=== PATIENT | female | born 1960 | race Caucasian/White ===

== ENCOUNTER 2020-11-13 22:21 | Observation (INO) ==
[2020-11-13] MEDS ORDERED: ALBUTEROL/IPRATROPIUM 3 ML NEB RESP TX STA (22:44)
[2020-11-13] MEDS ORDERED: methylPREDNISolone SOD SUC 125 MG/2 ML VIAL IV STA (22:44)
[2020-11-13] MEDS ORDERED: ASPIRIN 325 MG TABLET PO STA (22:44)
[2020-11-13] MEDS ORDERED: ALBUTEROL 2.5 MG/3 ML NEB RESP TX STA (22:44)
[2020-11-13 22:56] LABS: Basophils % 0.4 % (0.0-0.8); Eosinophils % 0.1 % (0.00-10.9); Hematocrit 44.8 VOL% (35.7-47.0); Hemoglobin 14.3 GM/DL (12.0-16.0); Immature Granulocytes % 0.6 %; Immature Granulocytes Absolute 0.06 #; Lymphocytes # 1.5 10*3/uL (1.4-4.0); Lymphocytes % 14.1 % (21.3-54.2); Mean Corpuscular HGB Conc 31.9 GM/DL (32-36); Mean Corpuscular Volume 89.1 FL (87-102); Mean Platelet Volume 10.5 FL (9.6-12.0); Monocytes % 4.3 % (1.7-12.7); Neutrophils % 80.5 % (38.7-73.9); Platelet Count 232 T/CUMM (130-400); Red Blood Count 5.03 MC/CUMM (3.8-5.5); Red Cell Distribution Width 14.1 % (9.3-17.3); White Blood Count 10.3 T/CUMM (4-12)
[2020-11-13 23:06] LABS: PT Patient Result 10.3 SECS (9.8-11.9)
[2020-11-13 23:15] LABS: Alanine Aminotransferase 32 U/L (13-56); Albumin 3.4 G/DL (3.4-5.0); Alkaline Phosphatase 72 U/L (45-117); Aspartate Amino Transferase 22 U/L (0-37); Bilirubin,Total < 0.39 MG/DL (0.2-1.0); Blood Urea Nitrogen 17 MG/DL (7-18); Calcium 8.9 MG/DL (8.5-10.1); Carbon Dioxide 26 MMOL/L (21-32); Estimated Glom Filtration Rate 109 ML/MIN; Glucose 115 MG/DL (74-106); Osmolality,Calculated 279.5 MOS/KG (273-304); Potassium 4.2 MMOL/L (3.5-5.1); Sodium 139 MMOL/L (136-145); Total Protein 7.8 G/DL (6.4-8.3)
[2020-11-13] MEDS ORDERED: LEVALBUTEROL 0.63 MG/3 ML NEB RESP TX ONE ×2 (23:25)
[2020-11-13 23:27] LABS: ABG Base Excess 1.5 MMOL/L (-2.5-2.5); ABG HCO3 25.6 MMOL/L (20-26); ABG Oxygen Saturation 93.6 % (95-100); ABG PCO2 38.6 MM HG (35-48); ABG PO2 60.6 MM HG (80-95); ABG TCO2 21.9 MMOL/L (23-27)
[2020-11-13] MEDS ORDERED: LEVALBUTEROL 0.63 MG/3 ML NEB RESP TX STA ×2 (23:43)
[2020-11-13] MEDS ORDERED: AZITHROMYCIN INJ 500 MG in SODIUM CHLORIDE 0.9% 250 ML IV STA (23:51)
[2020-11-13] MEDS ORDERED: cefTRIAXone 1,000 MG in SODIUM CHLORIDE 0.9% 100 ML IV STA (23:51)
[2020-11-14] MEDS ORDERED: DEXTROSE 50% 25 GM/50 ML VIAL IV PRN (00:08)
[2020-11-14] MEDS ORDERED: SIMETHICONE CHEW 125 MG TABLET PO PRN (00:08)
[2020-11-14] MEDS ORDERED: GLUCAGON 1 MG VIAL IM PRN (00:08)
[2020-11-14] MEDS ORDERED: guaiFENesin/DM ER 600-30 MG TABLET PO PRN (00:08)
[2020-11-14] MEDS ORDERED: ALUMINUM/MAGNES/SIMETH MAX STR 30 ML UDCUP PO PRN (00:08)
[2020-11-14] MEDS ORDERED: NICOTINE 21 MG/24 HR PATCH TRANSDERM PRN (00:08)
[2020-11-14] MEDS ORDERED: hydrALAZINE 20 MG/1 ML VIAL IV PRN (00:08)
[2020-11-14] MEDS ORDERED: ONDANSETRON 4 MG/2 ML VIAL IV PRN (00:08)
[2020-11-14] MEDS ORDERED: diphenhydrAMINE CAP 25 MG CAPSULE PO PRN (00:08)
[2020-11-14] MEDS ORDERED: ALBUTEROL/IPRATROPIUM 3 ML NEB RESP TX SCH (01:00)
[2020-11-14] MEDS: ACETAMINOPHEN 325 MG TABLET PO PRN ×2 (01:01→08:40)
[2020-11-14] MEDS: methylPREDNISolone SOD SUC 40 MG/1 ML VIAL IV SCH ×3 (06:34→21:45)
[2020-11-14] MEDS ORDERED: ALBUTEROL 1.25 MG/3 ML NEB RESP TX SCH (07:00)
[2020-11-14 07:29] LABS: Basophils % 0.1 % (0.0-0.8); Hematocrit 43.7 VOL% (35.7-47.0); Hemoglobin 13.6 GM/DL (12.0-16.0); Immature Granulocytes % 0.7 %; Lymphocytes # 1.2 10*3/uL (1.4-4.0); Lymphocytes % 8.7 % (21.3-54.2); Mean Corpuscular HGB Conc 31.1 GM/DL (32-36); Mean Corpuscular Volume 91.2 FL (87-102); Mean Platelet Volume 10.7 FL (9.6-12.0); Monocytes % 0.7 % (1.7-12.7); Neutrophils % 89.8 % (38.7-73.9); Platelet Count 210 T/CUMM (130-400); Red Blood Count 4.79 MC/CUMM (3.8-5.5); Red Cell Distribution Width 14.1 % (9.3-17.3); White Blood Count 13.6 T/CUMM (4-12)
[2020-11-14 07:51] LABS: Albumin 3.1 G/DL (3.4-5.0); Bilirubin,Total 0.5 MG/DL (0.2-1.0); Calcium 8.9 MG/DL (8.5-10.1); Osmolality,Calculated 278.8 MOS/KG (273-304); Potassium 3.8 MMOL/L (3.5-5.1); Total Protein 7.5 G/DL (6.4-8.3)
[2020-11-14] MEDS: LEVALBUTEROL 0.63 MG/3 ML NEB RESP TX SCH ×3 (07:51→19:26)
[2020-11-14] MEDS: IPRATROPIUM 500 MCG/2.5 ML NEB RESP TX SCH ×3 (07:51→19:26)
[2020-11-14] MEDS: PANTOPRAZOLE 40 MG TABLET PO SCH (08:40)
[2020-11-14] MEDS: ENOXAPARIN 40 MG/0.4 ML SYRINGE SUBCUT SCH (08:40)
[2020-11-14] MEDS: guaiFENesin 200 MG/10 ML UDCUP PO PRN (13:06)
[2020-11-14] MEDS: BENZOCAINE/MENTHOL LOZENGE 18/BOX PO PRN ×2 (15:24→21:46)
[2020-11-14] MEDS ORDERED: AZITHROMYCIN INJ 500 MG in SODIUM CHLORIDE 0.9% 250 ML IV SCH (21:00)
[2020-11-14] MEDS: ZALEPLON 5 MG CAPSULE PO PRN (21:36)
[2020-11-14] MEDS: cefTRIAXone 1,000 MG in SYRINGE 1 EACH IV SCH (21:37)
[2020-11-15] MEDS: IPRATROPIUM 500 MCG/2.5 ML NEB RESP TX SCH ×4 (01:12→20:00)
[2020-11-15] MEDS: LEVALBUTEROL 0.63 MG/3 ML NEB RESP TX SCH ×4 (01:12→20:00)
[2020-11-15] MEDS: methylPREDNISolone SOD SUC 40 MG/1 ML VIAL IV SCH ×4 (06:23→21:00)
[2020-11-15] MEDS: BENZOCAINE/MENTHOL LOZENGE 18/BOX PO PRN ×2 (09:38→17:49)
[2020-11-15] MEDS: PANTOPRAZOLE 40 MG TABLET PO SCH (09:38)
[2020-11-15] MEDS: ENOXAPARIN 40 MG/0.4 ML SYRINGE SUBCUT SCH (09:38)
[2020-11-15] MEDS: AZITHROMYCIN 250 MG TABLET PO SCH (12:17)
[2020-11-15] MEDS: guaiFENesin 200 MG/10 ML UDCUP PO PRN (17:49)
[2020-11-15] MEDS: BUDESONIDE 0.5 MG/2 ML NEB RESP TX SCH (20:00)
[2020-11-15] MEDS: ZALEPLON 5 MG CAPSULE PO PRN (20:28)
[2020-11-15] MEDS: cefTRIAXone 1,000 MG in SYRINGE 1 EACH IV SCH (20:28)
[2020-11-16] MEDS: IPRATROPIUM 500 MCG/2.5 ML NEB RESP TX SCH ×3 (00:23→13:56)
[2020-11-16] MEDS: LEVALBUTEROL 0.63 MG/3 ML NEB RESP TX SCH ×3 (00:23→13:57)
[2020-11-16] MEDS: methylPREDNISolone SOD SUC 40 MG/1 ML VIAL IV SCH ×2 (01:00→08:47)
[2020-11-16] MEDS: BUDESONIDE 0.5 MG/2 ML NEB RESP TX SCH (07:10)
[2020-11-16] MEDS: PANTOPRAZOLE 40 MG TABLET PO SCH (08:46)
[2020-11-16] MEDS: guaiFENesin 200 MG/10 ML UDCUP PO PRN (08:46)
[2020-11-16] MEDS: AZITHROMYCIN 250 MG TABLET PO SCH (08:46)
[2020-11-16] MEDS: ENOXAPARIN 40 MG/0.4 ML SYRINGE SUBCUT SCH (08:47)
[2020-11-16 11:58] VITALS: BP 176/85
[2020-11-17] MEDS ORDERED: LEVOFLOXACIN 500 MG TABLET PO SCH (09:00)
== END 2020-11-16 14:59 | disposition home or self-care (01) ==
LOC: N.ED 22:21 → N.5E 22:21
PROVIDERS: ADMIT Internal Medicine; ATTEND Internal Medicine

== ENCOUNTER 2021-01-11 18:34 | Observation (INO) ==
[2021-01-11] MEDS ORDERED: SODIUM CHLORIDE 0.9% 500 ML IV STA (19:53)
[2021-01-11] MEDS ORDERED: PANTOPRAZOLE 40 MG VIAL IV STA (19:53)
[2021-01-11] MEDS ORDERED: HYDROmorphone 2 MG/1 ML VIAL IV STA (19:53)
[2021-01-11] MEDS ORDERED: ONDANSETRON 4 MG/2 ML VIAL IV STA (19:53)
[2021-01-11 22:26] LABS: Basophils # 0.1 10*3/uL (0.0-0.2); Basophils % 0.6 % (0.0-0.8); Eosinophils # 0.4 10*3/uL (0.0-0.87); Eosinophils % 3.6 % (0.00-10.9); Hematocrit 48.5 VOL% (35.7-47.0); Hemoglobin 15.3 GM/DL (12.0-16.0); Immature Granulocytes % 0.3 %; Immature Granulocytes Absolute 0.03 #; Lymphocytes # 3.8 10*3/uL (1.4-4.0); Lymphocytes % 31.7 % (21.3-54.2); Mean Corpuscular HGB Conc 31.5 GM/DL (32-36); Mean Corpuscular Volume 90.3 FL (87-102); Mean Platelet Volume 10.7 FL (9.6-12.0); Monocytes % 7.4 % (1.7-12.7); Neutrophils % 56.4 % (38.7-73.9); Platelet Count 213 T/CUMM (130-400); Red Blood Count 5.37 MC/CUMM (3.8-5.5); Red Cell Distribution Width 14.1 % (9.3-17.3)
[2021-01-11 22:43] LABS: Albumin 3.3 G/DL (3.4-5.0); Bilirubin,Total 0.4 MG/DL (0.2-1.0); Osmolality,Calculated 274.7 MOS/KG (273-304); Potassium 4.5 MMOL/L (3.5-5.1); Total Protein 7.2 G/DL (6.4-8.2)
[2021-01-12 01:27] LABS: Bilirubin,Urine Negative (Negative); Blood, Urine Negative (Negative); Calcium Oxalate Crystals,Urine Occasional /HPF (Few); Glucose,Urine (UA) Negative (Negative); Hyaline Casts,Urine 6 /LPF (0-3); Ketones,Urine Negative (Negative); Mucus,Urine Many /LPF (Occasional); Nitrite,Urine Negative (Negative); Protein,Urine 30 MG/DL; RBC,Urine 2 /HPF (0-4); Squamous Epithelial Cell,Urine Occasional /HPF (0-10); Urine Appearance CLEAR (Clear); Urine Color Yellow (Yellow); Urine Specific Gravity 1.027 (1.001-1.035); WBC,Urine <1 /HPF (0-6)
[2021-01-12] MEDS ORDERED: ACETAMINOPHEN 325 MG TABLET PO PRN (01:35)
[2021-01-12] MEDS ORDERED: ALBUTEROL/IPRATROPIUM 3 ML NEB RESP TX PRN (01:35)
[2021-01-12] MEDS: SODIUM CHLORIDE 0.9% 1,000 ML IV SCH ×3 (01:51→16:35)
[2021-01-12] MEDS: PIPERACILLIN/TAZOBACTAM 3,375 MG in SODIUM CHLORIDE 0.9% 100 ML IV SCH ×3 (02:08→17:59)
[2021-01-12] MEDS: HYDROmorphone 2 MG/1 ML VIAL IV PRN ×6 (05:00→18:00)
[2021-01-12] MEDS: ONDANSETRON 4 MG/2 ML VIAL IV PRN ×2 (05:02→10:50)
[2021-01-12 05:27] LABS: Basophils # 0.1 10*3/uL (0.0-0.2); Basophils % 0.7 % (0.0-0.8); Eosinophils # 0.4 10*3/uL (0.0-0.87); Eosinophils % 4.1 % (0.00-10.9); Hematocrit 44.6 VOL% (35.7-47.0); Hemoglobin 13.9 GM/DL (12.0-16.0); Immature Granulocytes % 0.3 %; Immature Granulocytes Absolute 0.03 #; Lymphocytes # 3.2 10*3/uL (1.4-4.0); Lymphocytes % 31.5 % (21.3-54.2); Mean Corpuscular HGB Conc 31.2 GM/DL (32-36); Mean Corpuscular Volume 92.1 FL (87-102); Monocytes % 8.5 % (1.7-12.7); Neutrophils % 54.9 % (38.7-73.9); Platelet Count 196 T/CUMM (130-400); Red Blood Count 4.84 MC/CUMM (3.8-5.5); Red Cell Distribution Width 14.1 % (9.3-17.3); White Blood Count 10.1 T/CUMM (4-12)
[2021-01-12 05:54] LABS: Albumin 2.9 G/DL (3.4-5.0); Bilirubin,Total 0.8 MG/DL (0.2-1.0); Calcium 8.6 MG/DL (8.5-10.1); Osmolality,Calculated 281.4 MOS/KG (273-304); Potassium 4.5 MMOL/L (3.5-5.1); Total Protein 6.6 G/DL (6.4-8.2)
[2021-01-12] MEDS: PANTOPRAZOLE 40 MG VIAL IV SCH (08:59)
[2021-01-12] MEDS: IPRATROPIUM 500 MCG/2.5 ML NEB RESP TX SCH ×3 (13:08→23:59)
[2021-01-12] MEDS: LEVALBUTEROL 0.63 MG/3 ML NEB RESP TX SCH ×3 (13:08→23:59)
[2021-01-12] MEDS ORDERED: LIDOCAINE 2% 5 ML VIAL ONE (13:46)
[2021-01-12] MEDS ORDERED: ROCURONIUM 50 MG/5 ML VIAL IV ONE (13:46)
[2021-01-12] MEDS ORDERED: fentaNYL 100 MCG/2 ML VIAL ONE (13:46)
[2021-01-12] MEDS ORDERED: propofoL 200 MG/20 ML VIAL IV ONE (13:46)
[2021-01-12] MEDS ORDERED: MIDAZOLAM 2 MG/2 ML VIAL ONE (13:46)
[2021-01-12] MEDS ORDERED: TISSUE ADHESIVE 1 EACH APPLICATOR TOP ONE (13:58)
[2021-01-12] MEDS ORDERED: PHENYLEPHRINE 1 MG/10 ML SYRINGE IV ONE (14:48)
[2021-01-12] MEDS ORDERED: DEXAMETHASONE 4 MG/1 ML VIAL ONE (14:48)
[2021-01-12] MEDS ORDERED: ONDANSETRON 4 MG/2 ML VIAL ONE (14:48)
[2021-01-12] MEDS ORDERED: SEVOFLURANE 1 UNIT/15 MINUTE INH ONE (14:59)
[2021-01-12] MEDS ORDERED: NEOSTIGMINE 10 MG/10 ML VIAL ONE ×3 (15:47)
[2021-01-12] MEDS ORDERED: GLYCOPYRROLATE 0.4 MG/2 ML VIAL ONE (15:47)
[2021-01-12] MEDS ORDERED: ACETAMINOPHEN INJ 1,000 MG/100 ML VIAL IV ONE (15:49)
[2021-01-12] MEDS ORDERED: ONDANSETRON 4 MG/2 ML VIAL IV PRN (16:20)
[2021-01-12] MEDS ORDERED: ALBUTEROL/IPRATROPIUM 3 ML NEB RESP TX ONE (16:21)
[2021-01-12] MEDS: ENOXAPARIN 40 MG/0.4 ML SYRINGE SUBCUT SCH (17:59)
[2021-01-12] MEDS ORDERED: ESCITALOPRAM 10 MG TABLET PO SCH (21:00)
[2021-01-13] MEDS: PIPERACILLIN/TAZOBACTAM 3,375 MG in SODIUM CHLORIDE 0.9% 100 ML IV SCH ×2 (02:38→10:07)
[2021-01-13 05:21] LABS: Basophils % 0.2 % (0.0-0.8); Hemoglobin 14.6 GM/DL (12.0-16.0); Immature Granulocytes % 0.5 %; Immature Granulocytes Absolute 0.06 #; Lymphocytes # 1.5 10*3/uL (1.4-4.0); Mean Corpuscular HGB Conc 31.1 GM/DL (32-36); Mean Corpuscular Volume 92.7 FL (87-102); Mean Platelet Volume 10.8 FL (9.6-12.0); Monocytes % 8.4 % (1.7-12.7); Neutrophils % 78.9 % (38.7-73.9); Platelet Count 244 T/CUMM (130-400); Red Blood Count 5.07 MC/CUMM (3.8-5.5); Red Cell Distribution Width 14.1 % (9.3-17.3); White Blood Count 12.7 T/CUMM (4-12)
[2021-01-13 05:31] LABS: Calcium 8.7 MG/DL (8.5-10.1); Osmolality,Calculated 279.7 MOS/KG (273-304); Potassium 4.9 MMOL/L (3.5-5.1)
[2021-01-13] MEDS: IPRATROPIUM 500 MCG/2.5 ML NEB RESP TX SCH ×2 (06:58→13:30)
[2021-01-13] MEDS: LEVALBUTEROL 0.63 MG/3 ML NEB RESP TX SCH ×2 (06:58→13:30)
[2021-01-13] MEDS ORDERED: METOPROLOL SUCCINATE XL 50 MG TABLET PO SCH (09:00)
[2021-01-13] MEDS ORDERED: amLODIPine 5 MG TABLET PO SCH (09:00)
[2021-01-13] MEDS: PANTOPRAZOLE 40 MG VIAL IV SCH (09:05)
[2021-01-13] MEDS: HYDROmorphone 2 MG/1 ML VIAL IV PRN (10:06)
[2021-01-13] MEDS: SODIUM CHLORIDE 0.9% 1,000 ML IV SCH (13:03)
[2021-01-13 17:34] VITALS: BP 122/84
[2021-01-13] MEDS: ENOXAPARIN 40 MG/0.4 ML SYRINGE SUBCUT SCH (17:36)
== END 2021-01-13 18:49 | disposition home or self-care (01) ==
LOC: N.ED 18:34 → N.EDINP 18:34 → N.3E 01-12 02:01
PROVIDERS: ADMIT Student in an Organized Health Care Education/Training Program; ATTEND Student in an Organized Health Care Education/Training Program
PROC: LAPCHOL (2021-01-12 14:27)